=== PATIENT | female | born 1965 | race African-American/Black ===

== ENCOUNTER 2016-09-02 13:50 | Emergency (ER) | payer MEDICAID ==
[~2016-09-02 13:50] MED LIST: ADVAIR 25028 BLISTE1 INH; AMLODIPINE BESYL5 MG PO; ASPIR 8181 M1 PO; CARVEDILOL25 M1 PO; GABAPENTIN100 M1 PO; HUMALOG100 UNIT/1; ISORDIL TITRADOS5 M1 PO; LANTUS100 UNITS/ SC; LIPITOR80 M1 PO; LISINOPRIL10 M1 PO; MELOXICAM15 M1 PO; OXYCODONE HCL E10 MG PO; OXYCONTIN30 M1 PO; PLAVIX75 M1 PO; PROVENTIL HFA6.7 G1; SPIRONOLACTONE50 M1 PO
[2016-09-02] MEDS ORDERED: OMEPRAZOLE40 M2 PO (15:37)
[2016-09-02] MEDS ORDERED: REGLAN5 M1 (15:37)
[2016-09-02] MEDS ORDERED: PROTONIX40 M2 PO (15:37)
[2016-09-02] MEDS ORDERED: IBUPROFEN600 M1 PO (15:37)
[2016-09-02] MEDS ORDERED: SINGULAIR10 M1 PO (15:38)
[2016-09-02] MEDS ORDERED: BENADRYL25 M3 PO (15:38)
[2016-09-02] MEDS ORDERED: CYCLOBENZAPRINE10 M1 PO (16:14)
== END 2016-09-02 16:45 ==
LOC: EDMED 13:50
DX: M54.9 Dorsalgia, unspecified (principal); G89.29 Other chronic pain; I11.0 Hypertensive heart disease with heart failure; I50.9 Heart failure, unspecified; I25.10 Atherosclerotic heart disease of native coronary artery without angina pectoris; E66.9 Obesity, unspecified; J45.909 Unspecified asthma, uncomplicated; Z86.718 Personal history of other venous thrombosis and embolism; Z95.0 Presence of cardiac pacemaker; Z95.5 Presence of coronary angioplasty implant and graft; F17.200 Nicotine dependence, unspecified, uncomplicated; Z79.82 Long term (current) use of aspirin; Z79.899 Other long term (current) drug therapy
CPT/HCPCS: J1170